=== PATIENT | male | born 1975 ===

== ENCOUNTER 2017-03-12 16:53 | Emergency (ER) | payer OTHER ==
[2017-03-12 16:53] VITALS: BMI 28.8
[2017-03-12 17:08] VITALS: BP 138/73; PULSE 75; RESP 18; TEMP 98.6; O2SAT 99
[2017-03-12] MEDS ORDERED: guaiFENesin 200 mg/10 ml Syrup UD PO ONE (17:25)
[2017-03-12] MEDS ORDERED: Albuterol-Ipratrop 3 mg / 0.5 (3 ml) UD ONE (17:33)
[2017-03-12] MEDS: Albuterol-Ipratrop 3 mg / 0.5 (3 ml) UD IH SCH ×2 (17:35→17:54)
[2017-03-12] MEDS ORDERED: guaiFENesin 100 mg/5 ml Syrup UD ONE (17:38)
--- NOTE | 2017-03-12 17:49 | ED PDOC ---
Arrival/HPI - General Chief Complaint: Cough, Cold, Congestion Time Seen by Provider: 03/12/17 17:17 Historian: Patient - History of Present Illness Narrative History of Present Illness (Text): 03/12/17 17:47 41 yo M complains of cough productive of yellow/green sputum, beginning 6 days ago and associated with wheezing. Reports h/o asthma as a child but not as an adult. Otherwise: (-) fever, (-) chills, (-) chest pain, (-) dyspnea, (-) hemoptysis, (-) upper back pain, (-) travel, (-) recent prolonged immobility, (+ ) sick contacts - girlfirend is sick with similar symptoms. PMD Franc Past Medical History - Provider Review Nursing Documentation Reviewed: Yes - Infectious Disease Hx of Infectious Diseases: None - Endocrine/Metabolic Hx Hyperthyroidism: Yes - Psychiatric Hx Substance Use: No Family/Social History - Physician Review Nursing Documentation Reviewed: Yes Family/Social History: Unknown Family HX Smoking Status: Never Smoked Hx Alcohol Use: No Hx Substance Use: No Allergies/Home Meds Allergies/Adverse Reactions: Allergies shellfish derived Allergy (Verified 03/12/17 17:00) ANAPHYLAXIS Review of Systems - Review of Systems Constitutional: absent: Fatigue, Weight Change, Fevers Respiratory: Cough, Sputum, Wheezing. absent: SOB Cardiovascular: absent: Chest Pain, Palpitations Gastrointestinal: absent: Abdominal Pain, Vomiting, Appetite Changes Genitourinary Male: absent: Dysuria, Frequency, Hematuria Musculoskeletal: absent: Arthralgias, Back Pain, Neck Pain Skin: absent: Rash, Pruritis, Skin Lesions Neurological: absent: Headache, Dizziness, Focal Weakness Physical Exam - Physical Exam Narrative Physical Exam (Text): 03/12/17 17:52 GENERAL APPEARANCE: Patient is awake, alert, oriented x 3, in no acute distress. Speaking. In full sentences., breathing is easy and unlabored. SKIN: Warm, dry; (-) cyanosis. EYES: (-) conjunctival pallor. ENMT: Mucous membranes moist. Airway patent: (-) stridor. Pharynx: (-) swelling, (-) erythema. NECK: (-) tenderness, (-) stiffness, (-) lymphadenopathy. CHEST AND RESPIRATORY: (+) bilateral expiratory wheezing; (-) rales, (-) rhonchi, (-) rub; breath sounds equal bilaterally. HEART AND CARDIOVASCULAR: (-) irregularity; (-) murmur, (-) gallop. ABDOMEN AND GI: Soft; (-) tenderness. EXTREMITIES: (-) deformity, (-) edema. NEURO AND PSYCH: Mental status as above; (-) focal findings. Vital Signs Temp Pulse Resp BP Pulse Ox 03/12/17 17:00 98.6 F 75 18 138/73 99 Medical Decision Making ED Course and Treatment: 03/12/17 17:50 41 yo M complains of cough productive of yellow/green sputum, beginning 6 days ago and associated with wheezing. Patient medicated with prednisone 60 mg by mouth, guaifenesin 400 mg by mouth, DuoNeb 2. On reevaluation, the patient reports significant improvement. On exam, patient is speaking in full sentences, breathing easy and unlabored, lungs are clear to auscultation, no wheezing. Based on history, exam and ED course, plan will be for outpatient follow up PMD. Diagnosis of bronchitis and asthma discussed with the patient. Patient advised to follow up with primary care physician in 1-2 days without fail. Advised to take medication as prescribed. Return to the emergency room at any time for any new or worsening symptoms. States she fully agrees with and understands discharge instructions. States that she agrees with the plan and disposition. Verbalized and repeated discharge instructions and plan. I have given the patient opportunity to ask any additional questions. - Medication Orders Current Medication Orders: Discontinued Medications Albuterol/Ipratropium (Duoneb 3 Mg/0.5 Mg (3 Ml) Ud) 3 ml IH Q15M [facility] Stop: 03/12/17 17:46 Last Admin: 03/12/17 17:54 Dose: 3 ml Guaifenesin (Robitussin) 400 mg PO ONCE ONE Stop: 03/12/17 17:26 Last Admin: 03/12/17 17:54 Dose: 400 mg Prednisone (Prednisone Tab) 60 mg PO STAT STA Stop: 03/12/17 17:26 Last Admin: 03/12/17 17:54 Dose: 60 mg - PA / SEARCH MARKETING ANALYST / Resident Statement /DO has reviewed & agrees with the documentation as recorded. Disposition/Present on Arrival - Present on Arrival Any Indicators Present on Arrival: No History of DVT/PE: No History of Uncontrolled Diabetes: No Urinary Catheter: No History of Decub. Ulcer: No - Disposition Have Diagnosis and Disposition been Completed?: Yes Diagnosis: Bronchitis, Asthma Disposition: HOME/ ROUTINE Disposition Time: 18:30 Patient Plan: Discharge Patient Problems: Current Active Problems Problem Status Onset Asthma Acute Bronchitis Acute Condition: IMPROVED Discharge Instructions (ExitCare): Asthma (ED), Acute Bronchitis (ED) Print Language: LAO Additional Instructions: Thank you for letting us take care of you today. You were treated for bronchitis , asthma. The emergency medical care you received today was directed at your acute symptoms. If you were prescribed any medication, please fill it and take as directed. It may take several days for your symptoms to resolve. Return to the Emergency Department if your symptoms worsen, do not improve, or if you have any other problems. Please contact your doctor in 2 days for re-evaluation and follow up. Bring any paperwork you were given at discharge with you along with any medications you are taking to your follow up visit. Our treatment cannot replace ongoing medical care by a primary care provider (PCP) outside of the emergency department. Thank you for allowing the [facility] team to be part of your care today. Prescriptions: Albuterol 0.083% [Albuterol Sulfate 3 Ml] 3 ml IH Q4 #100 neb Guaifenesin 400 mg PO QID #20 tablet Nebulizer [Aeroeclipse II] 1 each MC DAILY #1 each predniSONE [predniSONE Tab] 40 mg PO DAILY #8 tab Forms: [employer] ([place]), [facility] ED School/Work Excuse
== END 2017-03-12 18:58 | disposition home or self-care (01) ==
LOC: H.ER 16:53
DX: J40 Bronchitis, not specified as acute or chronic (principal); J45.909 Unspecified asthma, uncomplicated; E05.90 Thyrotoxicosis, unspecified without thyrotoxic crisis or storm

== ENCOUNTER 2018-04-11 06:27 | Emergency (ER) | payer MEDICAID, OTHER ==
[2018-04-11 06:28] VITALS: BMI 28.8
[2018-04-11] MEDS ORDERED: Sodium Chloride 0.9% 1,000 ML IV STA (07:05)
--- NOTE | 2018-04-11 07:15 | ED PDOC ---
HPI: Chest Pain Time Seen by Provider: 04/11/18 07:00 Chief Complaint (Nursing): Chest Pain Chief Complaint (Provider): Chest Pain History Per: Patient History/Exam Limitations: no limitations Onset/Duration Of Symptoms: Hrs (x3) Current Symptoms Are (Timing): Still Present Additional Complaint(s): Patient is a 42 y/o male with a PMHx of anxiety, asthma, back problems, hyperthyroidism, hypothyroidism, and depression who presents to the ED for evaluation of palpitations for the past 3 hours. Patient claims the pain started after taking both Benadryl and Sinex. Patient admits to anxiety and depression. Patient takes Abilify for depression. Patient denies chest pain, dizziness, and short of breath. PCP: None Provided Past Medical History Reviewed: Historical Data, Nursing Documentation, Vital Signs Vital Signs: Last Vital Signs Temp 98 F 04/11/18 06:45 Pulse 134 H 04/11/18 06:45 Resp 18 04/11/18 06:45 BP 116/61 04/11/18 06:45 Pulse Ox 96 04/11/18 06:45 - Medical History PMH: Anxiety, Asthma, Back Problems (Spine surgery), Depression, Hyperthyroidism, Hypothyroidism Denies: Chronic Kidney Disease - Surgical History Surgical History: Back Surgery - Family History Family History: States: No Known Family Hx - Social History Alcohol: None Drugs: Denies - Home Medications Home Medications: Ambulatory Orders Medication Instructions Recorded Amoxicillin 500 mg PO BID #14 tablet 07/09/16 Albuterol 0.083% [Albuterol 3 ml IH Q4 #100 neb 03/12/17 Sulfate 3 Ml] Guaifenesin 400 mg PO QID #20 tablet 03/12/17 Nebulizer [Aeroeclipse II] 1 each MC DAILY #1 each 03/12/17 predniSONE [predniSONE Tab] 40 mg PO DAILY #8 tab 03/12/17 - Allergies Allergies/Adverse Reactions: Allergies Allergy/AdvReac Type Severity Reaction Status Date / Time shellfish derived Allergy ANAPHYLAXIS Verified 04/11/18 06:44 Review of Systems ROS Statement: Except As Marked, All Systems Reviewed And Found Negative Cardiovascular: Positive for: Palpitations. Negative for: Chest Pain Respiratory: Negative for: Shortness of Breath Neurological: Negative for: Dizziness Psych: Positive for: Anxiety, Depression Physical Exam - Reviewed Nursing Documentation Reviewed: Yes Vital Signs Reviewed: Yes - Physical Exam Appears: Positive for: Non-toxic, No Acute Distress Head Exam: Positive for: ATRAUMATIC, NORMAL INSPECTION, NORMOCEPHALIC Skin: Positive for: Normal Color, Warm, Dry Eye Exam: Positive for: EOMI, Normal appearance, PERRL Neck: Positive for: Normal, Painless ROM, Supple Cardiovascular/Chest: Positive for: Tachycardia, Other (regular rhythm) Respiratory: Positive for: Normal Breath Sounds. Negative for: Respiratory Distress Gastrointestinal/Abdominal: Positive for: Normal Exam, Soft. Negative for: Tenderness Back: Positive for: Normal Inspection. Negative for: L CVA Tenderness, R CVA Tenderness, Vertebral Tenderness Extremity: Positive for: Normal ROM. Negative for: Pedal Edema, Deformity Neurologic/Psych: Positive for: Alert, Oriented. Negative for: Motor/Sensory Deficits - Laboratory Results Result Diagrams: 04/11/18 06:54 04/11/18 06:54 - ECG O2 Sat by Pulse Oximetry: 96 (RA) Pulse Ox Interpretation: Normal - Progress Re-evaluation Time: 10:41 Condition: Improved (HR 99. Pt feels better) Medical Decision Making Medical Decision Making: Time: 05 Impression: Palpitations and sinus tachycardia at 130. Hemodynamically stable, most likely due to combination of medications. Will obtain Troponin and toxico logy. Plan: Treat with IV fluids and Ativan for symptom relief. - EKG - Alcohol Serum - CMP - Drug Screen - Troponin I - CBC - Ativan 1 mg PO - IV Fluids Scribe Attestation: Documented by Ronn Florentino, acting as a scribe for Gary Hua MD. Provider Scribe Attestation: All medical record entries made by the Scribe were at my direction and personally dictated by me. I have reviewed the chart and agree that the record accurately reflects my personal performance of the history, physical exam, medical decision making, and the department course for this patient. I have also personally directed, reviewed, and agree with the discharge instructions and disposition. Disposition - Clinical Impression Clinical Impression: Tachycardia - Patient ED Disposition Is Patient to be Admitted: No Counseled Patient/Family Regarding: Studies Performed, Diagnosis, Need For Followup - Disposition Referrals: Diego Lutz MD [Staff Provider] - Disposition: Routine/Home Disposition Time: 10:42 Condition: FAIR Instructions: Tachycardia Forms: [facility] ([place])
[2018-04-11 07:38] LABS: ALB/GLOB RATIO 1.4 (1.0-2.1); ALBUMIN 4.5 g/dL (3.5-5.0); ALT/SGPT 36 U/L (21-72); AST/SGOT 31 U/L (17-59); BLOOD UREA NITROGEN 22 mg/dl (9-20); CALCIUM 9.4 mg/dL (8.4-10.2); GFR NON-AFRICAN AMERICAN > 60
[2018-04-11] MEDS ORDERED: Potassium Chloride 20 mEq ER Tab PO ONE (07:44)
[2018-04-11 07:50] LABS: BASO # 0.1 K/uL (0.0-0.2); EOS # 0.5 K/uL (0.0-0.7); EOS % 5.9 % (0.0-4.0); LYMPH # 3.3 K/uL (1.0-4.3); LYMPH % 38.2 % (20.0-40.0); MEAN CELL VOLUME 90.7 fl (80.0-94.0); MEAN CORPUSCULAR HEMOGLOBIN 30.7 pg (27.0-31.0); MEAN CORPUSCULAR HGB CONC 33.8 g/dL (33.0-37.0); MEAN PLATELET VOLUME 9.2 fl (7.2-11.7); MONO % 11.5 % (0.0-10.0); NEUT # 3.7 K/uL (1.8-7.0); NEUT % 43.4 % (50.0-75.0); NRBC % 0.2 % (0.0-0.0); RBC 4.24 Mil/uL (4.40-5.90); RED CELL DISTRIBUTION WIDTH 13.7 % (11.5-14.5); WHITE BLOOD COUNT 8.6 K/uL (4.8-10.8)
[2018-04-11 08:36] LABS: BARBITURATES, UR NEGATIVE (NEGATIVE); BENZODIAZEPINES, UR NEGATIVE (NEGATIVE); OPIATES, UR NEGATIVE (NEGATIVE); PHENCYCLIDINE, UR NEGATIVE (NEGATIVE)
[2018-04-11 09:37] VITALS: TEMP 99.2
[2018-04-11 09:38] VITALS: O2SAT 96
[2018-04-11 10:51] VITALS: BP 116/72; PULSE 99; RESP 17
--- NOTE | 2018-04-12 11:30 | CARD ---
APPROVED REPORT Date of service: 04/11/2018 EKG Measurement Heart [id number] <Conclusion> Sinus tachycardia Non specific T-wave changes Abnormal ECG
== END 2018-04-11 10:50 | disposition home or self-care (01) ==
LOC: H.ER 06:27
DX: R00.0 Tachycardia, unspecified (principal); Z86.59 Personal history of other mental and behavioral disorders; J45.909 Unspecified asthma, uncomplicated
CPT/HCPCS: 80053; 80320; 80324; 80345; 80346; 80349; 80353; 80358; 80361; 83992; 84484; 85025; 93005; 99285; J7030